=== PATIENT | male | born 1945 | race Caucasian/White ===

== ENCOUNTER 2017-06-19 15:53 | Emergency (ER) | payer SELFPAY ==
--- NOTE | 2017-06-19 17:14 | RAD ---
PROCEDURE: Left Foot Radiographs. HISTORY: foot pain, COMPARISON: None. FINDINGS: BONES: No evidence of acute fracture JOINTS: Degenerative changes. SOFT TISSUES: Vascular calcification is noted. OTHER FINDINGS: None. IMPRESSION: No evidence of acute fracture or dislocation. Diffuse vascular calcification and mild soft tissue swelling.
--- NOTE | 2017-06-19 18:10 | C.PDOC ---
History Of Present Illness 71 yr old male presents to the ER stating he has been having chronic left foot pain for the past several months and also pain to the right knee. Patient reports he has never been to the doctor for it and however the pain has worsened today, prompting the ER visit. Denies trauma, injury, back pain, weakness or numbness. Time Seen by Provider: 06/19/17 16:20 Chief Complaint (Nursing): Lower Extremity Problem/Injury History Per: Patient History/Exam Limitations: no limitations Onset/Duration Of Symptoms: Persistent (Several months) Past Medical History Reviewed: Historical Data, Nursing Documentation, Vital Signs Vital Signs: Last Vital Signs Temp 97.5 F L 06/19/17 18:14 Pulse 73 06/19/17 18:14 Resp 18 06/19/17 18:14 BP 178/72 H 06/19/17 18:14 Pulse Ox 100 06/19/17 18:14 - Medical History PMH: HTN, Hypercholesterolemia Family History: States: No Known Family Hx - Social History Hx Alcohol Use: No Hx Substance Use: No - Immunization History Hx Tetanus Toxoid Vaccination: No Hx Influenza Vaccination: Yes Hx Pneumococcal Vaccination: No Review Of Systems Except As Marked, All Systems Reviewed And Found Negative. Musculoskeletal: Positive for: Foot Pain (Chornic left foot pain), Other (Right knee pain). Negative for: Back Pain Neurological: Negative for: Weakness, Numbness Physical Exam - Physical Exam Appears: Non-toxic Skin: Warm, Dry, No Rash Head: Atraumatic, Normacephalic Eye(s): bilateral: Normal Inspection, PERRL, EOMI Oral Mucosa: Moist Extremity: Normal ROM (Normal right knee), No Tenderness, No Calf Tenderness, No Swelling, Other (Left foot no wound or discoloration) Pulses: Left Dorsalis Pedis: Normal, Right Dorsalis Pedis: Normal Neurological/Psych: Oriented x3, Normal Speech, Normal Motor, Normal Sensation Gait: Steady ED Course And Treatment O2 Sat by Pulse Oximetry: 100 (on RA) Pulse Ox Interpretation: Normal - Other Rad X-Ray - Left Foot X-Ray: Viewed By Me, Read By Radiologist Interpretation: PROCEDURE: Left Foot Radiographs. HISTORY: foot pain,. COMPARISON: None. FINDINGS: BONES: No evidence of acute fracture. JOINTS: Degenerative changes. SOFT TISSUES: Vascular calcification is noted. OTHER FINDINGS: None. IMPRESSION: No evidence of acute fracture or dislocation. Diffuse vascular calcification and mild soft tissue swelling. Medical Decision Making Medical Decision Making: differential: Gout, fracture, cellulitis, neuropathy, arterial insufficency. PLAN: * X-Ray - Left Foot * Motrin PO * Tylenol PO Disposition - Disposition Referrals: Melissa Moore DPM [Staff Provider] - Disposition: HOME/ ROUTINE Disposition Time: 18:10 Condition: GOOD Additional Instructions: Follow up with the Charge Entry Clerk within 1-2 days, Return if worsened. Prescriptions: Acetaminophen [Tylenol] 325 mg PO Q6 PRN #30 tab PRN Reason: Pain, Mild (1-3) Ibuprofen [Motrin] 1 tab PO TID PRN #20 tab PRN Reason: Pain Instructions: Peripheral Neuropathy (ED) Forms: [facility] (Swiss) - Clinical Impression Clinical Impression: Foot pain, Knee pain - PA / FINISHER DENTURE / Resident Statement MD/DO has reviewed & agrees with the documentation as recorded. - Scribe Statement The provider has reviewed the documentation as recorded by the Scribe Marissa Garay All medical record entries made by the Scribe were at my direction and personally dictated by me. I have reviewed the chart and agree that the record accurately reflects my personal performance of the history, physical exam, medical decision making, and the department course for this patient. I have also personally directed, reviewed, and agree with the discharge instructions and disposition.
[2017-06-19 18:14] VITALS: BP 178/72; PULSE 73; RESP 18; TEMP 97.5; O2SAT 100
== END 2017-06-19 18:25 | disposition home or self-care (01) ==
LOC: C.ER 15:53
DX: M79.672 Pain in left foot (principal); M25.561 Pain in right knee